=== PATIENT | male | born 1985 | race Caucasian/White ===

== ENCOUNTER 2021-12-06 13:52 | Emergency (ER) | payer BC ==
[~2021-12-06] VITALS: Ht 193 cm; Wt 85.0 kg
[2021-12-06 14:10] VITALS: BP 117/60
--- NOTE | 2021-12-06 14:44 | PHYS DOC ---
Past History Past Surgical History: No Surgical History Alcohol Use: Occasionally General Adult EDM: Chief Complaint: FLU SYMPTOM HPI: HPI: Patient is a 36-year-old male who presents to the emergency department for multiple complaints including fever, chills, body aches, fatigue, nonproductive cough that started on December 02. Patient reports that he was airplane traveling to [place] when his symptoms started. He denies shortness of breath, sore throat, nausea, urinary symptoms, vomiting, diarrhea. He states that he has been taking Tylenol at home for his symptoms. Review of Systems: Review of Systems: Constitutional: See HPI HENT: See HPI Respiratory: See HPI GI: See HPI : See HPI Musculoskeletal: See HPI Allergies: Allergies: Allergies Coded Allergies Type Severity Reaction Last Updated Verified ibuprofen Allergy Unknown 12/06/21 Yes Physical Exam: PE: Constitutional: Well developed, well nourished, no acute distress, non-toxic appearance. [] HENT: Normocephalic, atraumatic, bilateral external ears normal, oropharynx moist, no oral exudates, 2+ tonsillar enlargement with erythema, cobblestoning noted, postnasal drainage noted, nose normal. [] Eyes: PERRL, EOMI, conjunctiva normal, no discharge. [] Neck: Normal range of motion, no tenderness, supple, Rtonsillar lymphadenopathy, no stridor. [] Cardiovascular:Heart rate regular rhythm, no murmur [] Lungs & Thorax: Bilateral breath sounds clear to auscultation [] Abdomen: Bowel sounds normal, soft, no tenderness, no masses, no pulsatile masses. [] Skin: Warm, dry, no erythema, no rash. [] Back: No tenderness normal range of motion Extremities: No tenderness, no cyanosis, no clubbing, ROM intact, no edema. [] Neurologic: Alert and oriented X 3, normal motor function, normal sensory function, no focal deficits noted. [] Psychologic: Affect normal, judgement normal, mood normal. [] Current Patient Data: Vital Signs: Vital Signs Date Time Temp Pulse Resp B/P (MAP) Pulse Ox O2 Delivery O2 Flow Rate FiO2 12/06/21 14:10 98.3 70 16 117/60 (79) 100 Room Air EKG: EKG: [] Radiology/Procedures: Radiology/Procedures: []PROCEDURE: PORTABLE CHEST 1V XR CHEST 1V CLINICAL INDICATIONS: Reason: cough, fever / Spl. Instructions: / History: COMPARISON: None available. Findings: Left infrahilar lung infiltrate is seen. No pleural effusion or pneumothorax is evident.. The heart size, pulmonary vasculature, mediastinum and both marta are unremarkable. IMPRESSION: Left infrahilar lung infiltrate. Electronically signed by: Fernando Carreno MD (12/06/2021 2:56 PM) [id number] DICTATED AND SIGNED BY: FERNANDO CARRENO MD DATE: 12/06/21 1456 CC: JOHN VALENZUELA APRN; PCP,KRISTEL ~ Heart Score: C/O Chest Pain: N/A Risk Factors: Risk Factors: DM, Current or recent (<one month) smoker, HTN, HLP, family history of CAD, obesity. Risk Scores: Score 0 - 3: 2.5% MACE over next 6 weeks - Discharge Home Score 4 - 6: 20.3% MACE over next 6 weeks - Admit for Clinical Observation Score 7 - 10: 72.7% MACE over next 6 weeks - Early Invasive Strategies Course & Med Decision Making: Course & Med Decision Making Pertinent Labs and Imaging studies reviewed. (See chart for details) [] Patient presents to the emergency department with multiple complaints including fever, cough, chills and body aches. Patient be treated for strep, flu and COVID chest x-ray performed as he is having a cough and fevers. Patient's vital signs are stable. Flu, strep and COVID test were negative. Patient's chest x-ray shows a left infrahilar infiltrate he will be treated with antibiotic for pneumonia. Patient advised to take Tylenol and ibuprofen for his pain at home. His vital signs are stable. I discussed with patient all findings and diagnostic testing as well as the need to follow-up with PCP for further evaluation and treatment or return to the ER if any new or worsening symptoms. Strict return precautions were also discussed at length. Patient voiced understanding and agreement with the plan. Patient is hemodynamically stable at the time of disposition. Dragon Disclaimer: Dragon Disclaimer: This electronic medical record was generated, in whole or in part, using a voice recognition dictation system. Departure Departure: Impression: Primary Impression: Pneumonia Qualified Codes: J18.9 - Pneumonia, unspecified organism Disposition: HOME / SELF CARE / HOMELESS Condition: GOOD Referrals: PCP,NO (PCP) Patient Instructions: Pneumonia, Adult Additional Instructions: You were seen in the emergency department today for fever, chills, body aches and cough. You were noted to have pneumonia which we treated with an antibiotic. Please start and finish the antibiotic completely. You can take Delsym [id number] for your cough. Patient fluids and rest. Take Tylenol and ibuprofen at home for pain. Follow-up with your primary care provider on Tuesday regarding your ER visit. Return to the emergency department if you develop shortness of breath, chest pain, high fevers refractory to treatment, intractable nausea or vomiting, severe weakness or lethargy. Scripts Azithromycin (AZITHROMYCIN TABLET) 250 Mg Tablet 1 PKG PO UD for pneumonia for 5 Days, #6 TAB 0 Refills 2 the first day followed by 1 for days 2-5 Prov: JOHN VALENZUELA APRN 12/06/21 JOHN VALENZUELA APRN Dec 06, 2021 14:44
[2021-12-06 14:52] LABS: INFLUENZA A PATIENT NEGATIVE (NEGATIVE); INFLUENZA B PATIENT NEGATIVE (NEGATIVE)
--- NOTE | 2021-12-06 14:59 | RAD ---
XR CHEST 1V CLINICAL INDICATIONS: Reason: cough, fever / Spl. Instructions: / History: COMPARISON: None available. Findings: Left infrahilar lung infiltrate is seen. No pleural effusion or pneumothorax is evident.. The heart size, pulmonary vasculature, mediastinum and both marta are unremarkable. IMPRESSION: Left infrahilar lung infiltrate. Electronically signed by: Ole Carreno MD (12/06/2021 2:56 PM) [id number]
[2021-12-06] MEDS ORDERED: AZIT250T6 PO (15:19)
== END 2021-12-06 15:35 | disposition home or self-care (01) ==
LOC: ER 13:52
DX: J18.9 Pneumonia, unspecified organism (principal); Z20.822 Contact with and (suspected) exposure to COVID-19; Z88.6 Allergy status to analgesic agent
CPT/HCPCS: 71045; 87070; 87428; 87880; 99284